=== PATIENT | female | born 1935 | race Caucasian/White ===

== ENCOUNTER 2016-11-29 12:55 | Emergency (ER) | payer MEDICARE ==
[~2016-11-29] VITALS: Ht 170.2 cm; Wt 74.8 kg
[~2016-11-29 12:55] MED LIST: AMLO2.5T PO; ASPIRIN 81MG TA81 MG PO; BENZONATATE100 MG PO; BETAPACE120 MG PO; BISOPROLOL 5MG T5 MG PO; BROMFED DM COU473 ML PO; CEFDINIR 300MG300 MG PO; CHLORTHALIDONE25 MG PO; CLONAZEPAM0.25 MG PO; DIGITEK0.125 MG PO; GLUCOSAMINE & C1 CA1 PO; LEVAQUIN500 MG PO; LEVOTHYROXIN PO; LEVOTHYROXINE0.15 M2 PO; LEVOTHYROXINE0.15 MG PO; LISINOPRIL 10MG10 MG PO; LISINOPRIL10 MG PO; LOVENOX 4040 MG/0.1 IJ; MIRALAX17 GM/DOSE PO; MULTIVITAMIN &1 TAB PO; OMEGA-31000 M1 PO; PERCOCET 10 MG1 EACH PO; PHENAZOPYRIDIN200 MG PO; PRADAXA150 MG PO; PRESERVISION LU1 SGL PO; PRESERVISION1 SGL PO; SYNTHROID0.137 MG PO; TUMS ULTRA1000 MG PO; ZEBETA5 MG PO; ZITHROMAX Z PA250 MG PO; ZOCOR20 MG PO; ZOFRAN4 MG PO
[2016-11-29] MEDS ORDERED: LEVOTHYROXINE0.15 MG PO (13:07)
--- NOTE | 2016-11-29 13:33 | [facility]gent Treatment Center Report ---
History of Present Issue Date/Time Seen by Provider 11/29/16 1311 Visit Reason Pt arrived:Walked Presenting Problem:PT STATES SHE WAS TAKING A SHOWER TWO DAYS AGO WHEN THE HEMATOMA OF HER LEFT COELHO CAME OFF. STATES WANTING AREA CHECKED FOR INFECTION Location if Accident: Onset of symptoms date/time:11/27/16/ or onset unknown for:MEDICAL HX UNKNOWN Have you (or family members/close friends) recently traveled outside the [place]? N If Yes, where/when: Have you had exposure to infectious disease within the past month? TB? Other? Specify: Here w/ spouse worried about infection in wound on left coelho. Wound present x months. Started as a large hematoma that developed into a scab. Hematoma has resolved and scab has been slowly decreasing in size. Has been being managed by primary care, Dr. peace and Dr. Rico. Pt reports having been on antibiotics "off and on". has had a culture but "The doctor said it was negative because of the recent antibiotic masking it more then likely". Last took oral antibiotics "about 2 weeks ago". Using mupirocin ointment "most days". Worried because while in the shower 2 days ago, part of scab fell off. requesting a culture and "just want to be sure not infected". Called PCP today. No available appt bvut made an appt for tomorrow before learning about the [facility]. Source patient Exam Limitations no limitations ALLERGIES Coded Allergies: ciprofloxacin (From CIPRO) (Mild, I-RASH 07/28/15) Home Medications Active Scripts Amlodipine Besylate 2.5 MG PO DAILY #30 TABLET Prov: 07/29/15 Chlorthalidone 25 MG PO DAILY #30 TAB Prov: 07/29/15 Reported Medications Lisinopril 10 MG PO BID #180 DABIGATRAN ETEXILATE MESYLATE (Pradaxa) 150 MG PO BID Simvastatin (Zocor) 20 MG PO QHS ASPIRIN (Aspirin) 81 MG PO DAILY Sotalol Hcl (Sotalol) 160 MG PO BID Levothyroxine Sodium (Levothyroxine 0.15MG) 0.137 MG PO Q48H BISOPROLOL FUMARATE (Bisoprolol 5MG) 5 MG PO DAILY #180 TAB Levothyroxine Sodium (Levothyroxine 0.15MG) 0.15 MG PO EVERYOTHERDA History Medical History General CAD? No Angina: No IA: No Hypertension? Yes Hyperlipidemia? Yes CHF? No DVT? No PE? No COPD? No Asthma? No Anemia? No GERD? No Gastric ulcers? No GI Bleed? No Hernia? Yes Thyroid Problems? Yes Hypothyroidism? Yes CVA? Yes Seizures? No Diabetes? No Renal Insuffiency? No UTI? Yes Stones? Yes BPH? No GB Disease: Yes Nephritic Syndrome? No Asplenia? No Hepatitis? No Sickle Cell Disease? No Arthritis? Yes Migraines? No Cataracts? Yes Glaucoma? No MRSA? No HIV? No TB? No Anxiety? No Depression? No Cancer? No More? 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 Family History Family HX Diabetes No CAD No Hypertension No Hyperlipidemia No Cancer Yes TB No Social History Smoking Hx Smoker: Never Smoker Tobacco: No Packs/day N/A Alcohol Alcohol: No Review of Systems All Other Systems Reviewed and Negative Constitutional denies fever, denies malaise Musculoskeletal joint pain (baseline), muscle pain ("always, even before this") Skin see HPI, denies other (no drainage) Psychiatric/Neurological denies numbness, denies tingling Physical Exam Vital Signs Vital Signs Date Time Temp Pulse Resp B/P Pulse O2 O2 Flow FiO2 Ox Delivery Rate 11/29 1335 98.2 103 18 145/101 98 11/29 1304 98.2 103 18 145/101 98 General Appearance normal appearance, no apparent distress Respiratory Status No: respiratory distress. Cardiovascular trace edema right LE, 1+ left LE, (pt reports baseline "it comes and goes") Extremities tenderness ga lower legs (pt reports baseline. "They don't know why they stay so sore all the time") No new pain left lower leg/coelho Neurologic alert Skin 2x3cm scab mid anterior coelho. No drainage, warmth, erythema. Surrounding skin shiney pink (appears to be new skin growth consistent w/ patient's report of scab slowly getting smaller). Currently mupirocin ointment cleaned off. Scab gently lifted without difficulty at most superior end, culture obtained. No drainage. Wound bed appeared healthy. Medical Decision Making LABS/Meds/Orders Pt receiving controlled substance in ED? No Results/Orders Orders Procedure Date/time Status CULTURE, WOUND 11/29 1328 Active Departure Departure Time of Disposition 1329 Disposition DC Home or Self Care(routine) Clinical Impression Primary Impression: Wound of left leg Qualifiers: Encounter type: initial encounter Qualified Code: S81.802A - Unspecified open wound, left lower leg, initial encounter Condition STABLE Referrals Jacky BERNAL,A.C. (Family) If any new or worsening symptoms, keep previously made appointment for tomorrow. Otherwise, follow up Friday for reevaluation and for wound culture results. Patient Instructions Skin Wound Additional Instructions COntinue mupirocin ointment Continue to clean w/ mild soap and water daily Do not pick at wound Monitor closely. Appears to be healing and no new sign of infection. Culture sent. BE SURE to follow up with primary care in 2-3 days for wound culture results so that if necessary, appropriate antibiotics can be initiated. Discharge Counseling Counseled pt/family regarding diagnosis, medications/RX, home care, follow up needs Comments Has mupirocin 2% ointment refill available at . pt plans to pick that up today. at [phone]
[2016-11-29 13:35] VITALS: BP 145/101
== END 2016-11-29 13:36 | disposition home or self-care (01) ==
LOC: UTC 12:55
DX: S81.802A Unspecified open wound, left lower leg, initial encounter (principal); X58.XXXA Exposure to other specified factors, initial encounter; I10 Essential (primary) hypertension; E03.9 Hypothyroidism, unspecified; E78.5 Hyperlipidemia, unspecified; Z96.653 Presence of artificial knee joint, bilateral; Z86.73 Personal history of transient ischemic attack (TIA), and cerebral infarction without residual deficits; Z87.442 Personal history of urinary calculi; Z79.82 Long term (current) use of aspirin; Z79.899 Other long term (current) drug therapy; Z88.1 Allergy status to other antibiotic agents